=== PATIENT | male | born 1960 | race Caucasian/White ===

== ENCOUNTER 2017-06-24 16:09 | Inpatient (IN) | payer MEDICARE, MEDICAID ==
[~2017-06-24] VITALS: Ht 172.7 cm; Wt 73.3 kg
[~2017-06-24 16:09] MED LIST: APIX5TAB3 PO; NO HOME MEDS
[2017-06-24] MEDS ORDERED: folic acid 1mg tablet PO ONE (17:10)
[2017-06-24] MEDS ORDERED: thiamine 100mg tablet PO ONE (17:10)
[2017-06-24] MEDS ORDERED: chlordiazePOXIDE 25mg capsule PO ONE (17:10)
[2017-06-24] MEDS ORDERED: LORazepam 1 MG tablet PO ONE (17:10)
[2017-06-24] MEDS ORDERED: magnesium oxide 400mg tablet PO ONE (17:10)
[2017-06-24 17:29] LABS: BASOPHILS % (AUTO) 0.3 % (0-1); EOSINOPHILS # (AUTO) 0.1 X10'3 (0-0.9); HEMATOCRIT 41.9 % (42.0-52.0); HEMOGLOBIN 15.1 g/dl (14.0-17.9); LYMPHOCYTES # (AUTO) 0.6 X10'3 (1.1-4.8); LYMPHOCYTES % (AUTO) 9.3 % (21-51); MEAN CORPUSCULAR HEMOGLOBIN 35.3 PG (27.0-31.0); MEAN CORPUSCULAR HGB CONC 35.9 % (33.0-36.5); MEAN CORPUSCULAR VOLUME 98.2 FL (78-98); MEAN PLATELET VOLUME 7.1 FL (7.4-10.4); MONOCYTES # (AUTO) 0.5 X10'3 (0-0.9); MONOCYTES % (AUTO) 8.7 % (2-12); NEUTROPHILS # (AUTO) 4.9 X10'3 (1.8-7.7); NEUTROPHILS % (AUTO) 80.7 % (42-75); PLATELET COUNT 170 X10'3 (140-440); RED BLOOD COUNT 4.27 X10'6 (4.70-6.10); RED CELL DISTRIBUTION WIDTH 13.1 % (11.5-14.5)
[2017-06-24 17:36] LABS: PARTIAL THROMBOPLASTIN TIME 23 SECONDS (22-32); PROTHROMBIN TIME 10.1 SECONDS (9.0-12.0)
[2017-06-24 17:41] LABS: ALANINE AMINOTRANSFERASE 421 U/L (12-78); ALBUMIN 4.2 G/DL (3.4-5.0); ALBUMIN/GLOBULIN RATIO 1.1 (1.1-1.5); ALKALINE PHOSPHATASE 129 IU/L (46-116); ANION GAP 16 (8-16); ASPARTATE AMINO TRANSFERASE 458 U/L (10-37); BILIRUBIN,TOTAL 1.4 MG/DL (0.1-1.0); BLOOD UREA NITROGEN 13 MG/DL (7-18); CALCIUM 9.8 MG/DL (8.5-10.1); CHLORIDE 97 MMOL/L (99-107); GLUCOSE 81 MG/DL (70-104); MAGNESIUM 1.9 MG/DL (1.5-2.4); POTASSIUM 4.9 MMOL/L (3.5-5.1); SODIUM 137 MMOL/L (135-145); TOTAL CARBON DIOXIDE 23.9 MMOL/L (24-32); TOTAL PROTEIN 7.9 G/DL (6.4-8.2); eGFR 57 ML/MIN
[2017-06-24 17:42] LABS: ETHANOL < 0.010 GM/DL (0.0-0.010)
[2017-06-24 17:58] LABS: LIPASE 196 U/L (73-393)
[2017-06-24] MEDS ORDERED: Potassium Cl inj 20 MEQ, magnesium sulf injection 2 GM, folic acid inj. 1 MG, thiamine ... IV ONE ×6 (18:54)
[2017-06-24] MEDS ORDERED: LORazepam 2 mg/ml vial IV ONE (18:55)
[2017-06-24] MEDS ORDERED: ondansetron/PF 4mg/2ml inj IV PRN ×3 (19:15→19:20)
[2017-06-24] MEDS ORDERED: magnesium hydroxide 30ml (MOM) UD suspension PO PRN ×3 (19:15→19:20)
[2017-06-24] MEDS ORDERED: acetaminophen 325mg tablet PO PRN ×3 (19:15→19:20)
[2017-06-24] MEDS ORDERED: mag hydrox/Alum hydrox/simeth 30ml oral suspension PO PRN ×3 (19:15→19:20)
[2017-06-24] MEDS ORDERED: thiamine inj. 100 MG in normal saline 100ml IV soln 100 ML IV ONE (19:20)
[2017-06-24] MEDS ORDERED: folic acid inj. 2 MG, thiamine inj. 100 MG, MVI, adult No.4 with vit. K 10 ML in dextro... IV SCH ×4 (19:20)
[2017-06-24] MEDS ORDERED: apixaban 5mg tablet PO SCH (20:00)
[2017-06-24 21:50] LABS: CLARITY,URINE CLEAR (Clear); COLOR,URINE YELLOW (Yellow); GLUCOSE, URINE NEGATIVE (Neg); KETONES,URINE >=80 mg/dl (Neg); LEUKOCYTE ESTERASE ,URINE NEGATIVE (Neg); NITRITES, URINE NEGATIVE (Neg); OCCULT BLOOD,URINE SMALL (Neg); PH,URINE 6.5 (4.8-8.0); PROTEIN,URINE TRACE mg/dl (Neg)
[2017-06-24 21:52] LABS: UA COLLECTION TYPE CLN CATCH MIDSTREAM
[2017-06-24 22:01] LABS: BACTERIA,URINE FEW /HPF (Neg); MUCUS STRANDS MODERATE /LPF (Neg); RBC,URINE 0-2 /HPF (0-2); SQUAMOUS EPITHELIAL CELL,UR FEW /LPF (FEW); WBC,URINE 0-4 /HPF (0-4)
[2017-06-24 22:02] LABS: URINE AMPHETAMINE SCREEN NEGATIVE (Neg); URINE BARBITUATE SCREEN NEGATIVE (Neg); URINE BENZODIAZEPINES SCREEN NEGATIVE (Neg); URINE CANNABINOID SCREEN POSITIVE (Neg); URINE COCAINE SCREEN NEGATIVE (Neg); URINE METHADONE SCREEN NEGATIVE (Neg); URINE OPIATE SCREEN NEGATIVE (Neg); URINE PHENCYCLIDINE SCREEN NEGATIVE (Neg)
[2017-06-25] MEDS ORDERED: thiamine 100mg/ml 2ml inj. IV ONE (06:40)
[2017-06-25] MEDS ORDERED: dextrose 50%-water 50ml dispensing syringe IV PRN (06:40)
[2017-06-25] MEDS ORDERED: haloperidol lactate 5mg/ml inj IM PRN (06:40)
[2017-06-25] MEDS ORDERED: LORazepam 2 mg/ml vial IV PRN (06:40)
[2017-06-25] MEDS ORDERED: haloperidol 5mg tablet PO PRN (06:40)
[2017-06-25] MEDS ORDERED: LORazepam 1 MG tablet PO PRN (06:40)
[2017-06-25] MEDS ORDERED: heparin 10,000 units/1 ML INJ IV PRN (08:35)
[2017-06-25] MEDS ORDERED: heparin 10,000 units/1 ML INJ IV ONE (08:35)
[2017-06-25 09:01] LABS: BASOPHILS % (AUTO) 0.4 % (0-1); EOSINOPHILS % (AUTO) 1.3 % (0-6); HEMATOCRIT 34.3 % (42.0-52.0); HEMOGLOBIN 11.9 g/dl (14.0-17.9); LYMPHOCYTES # (AUTO) 1.1 X10'3 (1.1-4.8); LYMPHOCYTES % (AUTO) 32.4 % (21-51); MEAN CORPUSCULAR HEMOGLOBIN 34.6 PG (27.0-31.0); MEAN CORPUSCULAR HGB CONC 34.8 % (33.0-36.5); MEAN CORPUSCULAR VOLUME 99.4 FL (78-98); MEAN PLATELET VOLUME 7.5 FL (7.4-10.4); MONOCYTES # (AUTO) 0.4 X10'3 (0-0.9); MONOCYTES % (AUTO) 12.3 % (2-12); NEUTROPHILS # (AUTO) 1.8 X10'3 (1.8-7.7); NEUTROPHILS % (AUTO) 53.6 % (42-75); PLATELET COUNT 115 X10'3 (140-440); RED BLOOD COUNT 3.45 X10'6 (4.70-6.10); WHITE BLOOD COUNT 3.4 X10'3 (4.5-11.0)
[2017-06-25 09:12] LABS: INR 1.1 INR; PROTHROMBIN TIME 11.1 SECONDS (9.0-12.0)
[2017-06-25 09:23] LABS: ALANINE AMINOTRANSFERASE 243 U/L (12-78); ALBUMIN 2.8 G/DL (3.4-5.0); ALKALINE PHOSPHATASE 90 IU/L (46-116); AMYLASE 30 U/L (25-115); ANION GAP 6 (8-16); ASPARTATE AMINO TRANSFERASE 204 U/L (10-37); BILIRUBIN,TOTAL 1.1 MG/DL (0.1-1.0); BLOOD UREA NITROGEN 14 MG/DL (7-18); BUN/CREATININE RATIO 15.6 (5.4-32.0); CALCIUM 8.5 MG/DL (8.5-10.1); CHLORIDE 103 MMOL/L (99-107); GLUCOSE 83 MG/DL (70-104); LIPASE 183 U/L (73-393); MAGNESIUM 2.4 MG/DL (1.5-2.4); PHOSPHORUS 3.3 MG/DL (2.3-4.5); POTASSIUM 4.6 MMOL/L (3.5-5.1); SODIUM 138 MMOL/L (135-145); TOTAL CARBON DIOXIDE 29.5 MMOL/L (24-32); TOTAL PROTEIN 5.7 G/DL (6.4-8.2); eGFR 87 ML/MIN
[2017-06-25] MEDS: pantoprazole 40mg Tablet.DR PO SCH (10:17)
[2017-06-25 15:45] VITALS: BP 95/59
[2017-06-25 18:00] VITALS: BP 82/52
[2017-06-25] MEDS: multivitamins, therapeutics tablet PO SCH (20:18)
[2017-06-25] MEDS: thiamine 100mg tablet PO SCH (20:18)
[2017-06-25] MEDS: folic acid 1mg tablet PO SCH (20:19)
[2017-06-25] MEDS ORDERED: folic acid inj. 2 MG, thiamine inj. 100 MG, MVI, adult No.4 with vit. K 10 ML in dextro... IV SCH ×4 (21:00)
[2017-06-25 22:00] VITALS: BP 108/60
[2017-06-26 02:18] LABS: PROTHROMBIN TIME 10.7 SECONDS (9.0-12.0)
[2017-06-26 06:30] VITALS: BP 103/68
[2017-06-26] MEDS: pantoprazole 40mg Tablet.DR PO SCH (06:45)
[2017-06-26 08:02] LABS: BASOPHILS % (AUTO) 0.3 % (0-1); EOSINOPHILS # (AUTO) 0.1 X10'3 (0-0.9); EOSINOPHILS % (AUTO) 1.7 % (0-6); HEMATOCRIT 36.5 % (42.0-52.0); HEMOGLOBIN 12.7 g/dl (14.0-17.9); LYMPHOCYTES # (AUTO) 1.4 X10'3 (1.1-4.8); LYMPHOCYTES % (AUTO) 39.9 % (21-51); MEAN CORPUSCULAR HEMOGLOBIN 34.4 PG (27.0-31.0); MEAN CORPUSCULAR HGB CONC 34.7 % (33.0-36.5); MEAN CORPUSCULAR VOLUME 99.1 FL (78-98); MEAN PLATELET VOLUME 7.7 FL (7.4-10.4); MONOCYTES # (AUTO) 0.3 X10'3 (0-0.9); MONOCYTES % (AUTO) 9.7 % (2-12); NEUTROPHILS # (AUTO) 1.7 X10'3 (1.8-7.7); NEUTROPHILS % (AUTO) 48.4 % (42-75); PLATELET COUNT 115 X10'3 (140-440); RED BLOOD COUNT 3.68 X10'6 (4.70-6.10); RED CELL DISTRIBUTION WIDTH 12.7 % (11.5-14.5); WHITE BLOOD COUNT 3.6 X10'3 (4.5-11.0)
[2017-06-26 10:01] VITALS: BP 88/47
[2017-06-26 10:23] LABS: ALANINE AMINOTRANSFERASE 207 U/L (12-78); ALKALINE PHOSPHATASE 98 IU/L (46-116); AMYLASE 39 U/L (25-115); ANION GAP 7 (8-16); ASPARTATE AMINO TRANSFERASE 141 U/L (10-37); BILIRUBIN,TOTAL 0.7 MG/DL (0.1-1.0); BLOOD UREA NITROGEN 15 MG/DL (7-18); BUN/CREATININE RATIO 16.7 (5.4-32.0); CHLORIDE 104 MMOL/L (99-107); GLUCOSE 101 MG/DL (70-104); LIPASE 311 U/L (73-393); PHOSPHORUS 4.9 MG/DL (2.3-4.5); POTASSIUM 4.1 MMOL/L (3.5-5.1); SODIUM 138 MMOL/L (135-145); TOTAL CARBON DIOXIDE 27.5 MMOL/L (24-32); eGFR 87 ML/MIN
[2017-06-26 10:30] LABS: CALCIUM 9.3 MG/DL (8.5-10.1)
[2017-06-26] MEDS: warfarin 5mg tablet PO SCH (16:02)
[2017-06-26 18:52] VITALS: BP 85/54
[2017-06-26] MEDS: multivitamins, therapeutics tablet PO SCH (21:05)
[2017-06-26] MEDS: folic acid 1mg tablet PO SCH (21:05)
[2017-06-26] MEDS: thiamine 100mg tablet PO SCH (21:05)
[2017-06-26 22:00] VITALS: BP 88/51
[2017-06-27 02:23] VITALS: BP 104/61
[2017-06-27 03:36] LABS: BASOPHILS % (AUTO) 0.2 % (0-1); EOSINOPHILS # (AUTO) 0.1 X10'3 (0-0.9); EOSINOPHILS % (AUTO) 1.5 % (0-6); HEMATOCRIT 34.6 % (42.0-52.0); HEMOGLOBIN 11.9 g/dl (14.0-17.9); LYMPHOCYTES # (AUTO) 1.6 X10'3 (1.1-4.8); MEAN CORPUSCULAR HEMOGLOBIN 34.4 PG (27.0-31.0); MEAN CORPUSCULAR HGB CONC 34.4 % (33.0-36.5); MEAN CORPUSCULAR VOLUME 99.9 FL (78-98); MEAN PLATELET VOLUME 8.1 FL (7.4-10.4); MONOCYTES # (AUTO) 0.5 X10'3 (0-0.9); MONOCYTES % (AUTO) 11.6 % (2-12); NEUTROPHILS # (AUTO) 2.1 X10'3 (1.8-7.7); NEUTROPHILS % (AUTO) 49.7 % (42-75); PLATELET COUNT 116 X10'3 (140-440); RED BLOOD COUNT 3.47 X10'6 (4.70-6.10); RED CELL DISTRIBUTION WIDTH 13.1 % (11.5-14.5); WHITE BLOOD COUNT 4.3 X10'3 (4.5-11.0)
[2017-06-27 03:55] LABS: PROTHROMBIN TIME 10.4 SECONDS (9.0-12.0)
[2017-06-27 04:01] LABS: ALANINE AMINOTRANSFERASE 164 U/L (12-78); ALBUMIN 2.9 G/DL (3.4-5.0); ALKALINE PHOSPHATASE 89 IU/L (46-116); AMYLASE 41 U/L (25-115); ANION GAP 6 (8-16); ASPARTATE AMINO TRANSFERASE 92 U/L (10-37); BILIRUBIN,TOTAL 0.5 MG/DL (0.1-1.0); BLOOD UREA NITROGEN 16 MG/DL (7-18); CALCIUM 9.1 MG/DL (8.5-10.1); CHLORIDE 104 MMOL/L (99-107); GLUCOSE 103 MG/DL (70-104); LIPASE 305 U/L (73-393); MAGNESIUM 1.8 MG/DL (1.5-2.4); PHOSPHORUS 4.5 MG/DL (2.3-4.5); POTASSIUM 4.3 MMOL/L (3.5-5.1); SODIUM 139 MMOL/L (135-145); TOTAL CARBON DIOXIDE 29.1 MMOL/L (24-32); TOTAL PROTEIN 5.9 G/DL (6.4-8.2); eGFR 77 ML/MIN
[2017-06-27 06:00] VITALS: BP 111/68
[2017-06-27] MEDS ORDERED: warfarin 5mg tablet PO SCH (08:00)
[2017-06-27 08:16] VITALS: BP 101/62
[2017-06-27] MEDS: warfarin 5mg tablet PO SCH (09:29)
[2017-06-27] MEDS: pantoprazole 40mg Tablet.DR PO SCH (09:29)
[2017-06-27 12:30] LABS: PROTHROMBIN TIME 10.4 SECONDS (9.0-12.0)
[2017-06-27 18:50] VITALS: BP 89/55
[2017-06-27] MEDS: multivitamins, therapeutics tablet PO SCH (20:18)
[2017-06-27] MEDS: thiamine 100mg tablet PO SCH (20:18)
[2017-06-27] MEDS: folic acid 1mg tablet PO SCH (20:18)
[2017-06-27 22:38] VITALS: BP 89/53
[2017-06-28 01:53] VITALS: BP 116/66
[2017-06-28 04:12] LABS: BASOPHILS % (AUTO) 0.5 % (0-1); EOSINOPHILS # (AUTO) 0.1 X10'3 (0-0.9); EOSINOPHILS % (AUTO) 1.7 % (0-6); HEMATOCRIT 35.2 % (42.0-52.0); HEMOGLOBIN 12.2 g/dl (14.0-17.9); LYMPHOCYTES # (AUTO) 1.1 X10'3 (1.1-4.8); LYMPHOCYTES % (AUTO) 27.8 % (21-51); MEAN CORPUSCULAR HEMOGLOBIN 34.5 PG (27.0-31.0); MEAN CORPUSCULAR HGB CONC 34.6 % (33.0-36.5); MEAN CORPUSCULAR VOLUME 99.5 FL (78-98); MEAN PLATELET VOLUME 7.9 FL (7.4-10.4); MONOCYTES # (AUTO) 0.4 X10'3 (0-0.9); MONOCYTES % (AUTO) 9.9 % (2-12); NEUTROPHILS # (AUTO) 2.4 X10'3 (1.8-7.7); NEUTROPHILS % (AUTO) 60.1 % (42-75); PLATELET COUNT 117 X10'3 (140-440); RED BLOOD COUNT 3.54 X10'6 (4.70-6.10); RED CELL DISTRIBUTION WIDTH 12.9 % (11.5-14.5)
[2017-06-28 04:29] LABS: INR 1.1 INR; PROTHROMBIN TIME 11.4 SECONDS (9.0-12.0)
[2017-06-28 04:33] LABS: ALANINE AMINOTRANSFERASE 141 U/L (12-78); ALBUMIN 2.8 G/DL (3.4-5.0); ALKALINE PHOSPHATASE 86 IU/L (46-116); AMYLASE 42 U/L (25-115); ANION GAP 8 (8-16); ASPARTATE AMINO TRANSFERASE 72 U/L (10-37); BILIRUBIN,TOTAL 0.4 MG/DL (0.1-1.0); BLOOD UREA NITROGEN 20 MG/DL (7-18); BUN/CREATININE RATIO 18.2 (5.4-32.0); CALCIUM 8.9 MG/DL (8.5-10.1); CHLORIDE 105 MMOL/L (99-107); GLUCOSE 108 MG/DL (70-104); LIPASE 327 U/L (73-393); MAGNESIUM 1.6 MG/DL (1.5-2.4); PHOSPHORUS 4.4 MG/DL (2.3-4.5); POTASSIUM 4.1 MMOL/L (3.5-5.1); SODIUM 141 MMOL/L (135-145); TOTAL CARBON DIOXIDE 28.2 MMOL/L (24-32); TOTAL PROTEIN 5.7 G/DL (6.4-8.2); eGFR 69 ML/MIN
[2017-06-28 05:00] VITALS: BP 101/64
[2017-06-28] MEDS: pantoprazole 40mg Tablet.DR PO SCH (07:58)
[2017-06-28 10:00] VITALS: BP 89/51
[2017-06-28 11:27] VITALS: BP 95/71
[2017-06-28 12:16] LABS: INR 1.1 INR; PROTHROMBIN TIME 11.4 SECONDS (9.0-12.0)
[2017-06-28] MEDS ORDERED: rivaroxaban 20mg tablet PO ONE (19:20)
[2017-06-28 19:34] VITALS: BP 88/54
[2017-06-28] MEDS: thiamine 100mg tablet PO SCH (20:38)
[2017-06-28] MEDS: folic acid 1mg tablet PO SCH (20:38)
[2017-06-28] MEDS: multivitamins, therapeutics tablet PO SCH (20:38)
[2017-06-28] MEDS ORDERED: warfarin 3mg tablet PO ONE (21:00)
[2017-06-28 22:18] VITALS: BP 93/57
[2017-06-29 06:00] VITALS: BP 93/57
[2017-06-29 06:19] LABS: BASOPHILS % (AUTO) 0.4 % (0-1); EOSINOPHILS % (AUTO) 1.4 % (0-6); HEMATOCRIT 35.6 % (42.0-52.0); HEMOGLOBIN 12.6 g/dl (14.0-17.9); LYMPHOCYTES # (AUTO) 0.9 X10'3 (1.1-4.8); LYMPHOCYTES % (AUTO) 28.9 % (21-51); MEAN CORPUSCULAR HEMOGLOBIN 34.8 PG (27.0-31.0); MEAN CORPUSCULAR HGB CONC 35.4 % (33.0-36.5); MEAN CORPUSCULAR VOLUME 98.3 FL (78-98); MEAN PLATELET VOLUME 8.1 FL (7.4-10.4); MONOCYTES # (AUTO) 0.6 X10'3 (0-0.9); MONOCYTES % (AUTO) 19.5 % (2-12); NEUTROPHILS # (AUTO) 1.6 X10'3 (1.8-7.7); NEUTROPHILS % (AUTO) 49.8 % (42-75); PLATELET COUNT 121 X10'3 (140-440); RED BLOOD COUNT 3.62 X10'6 (4.70-6.10); WHITE BLOOD COUNT 3.2 X10'3 (4.5-11.0)
[2017-06-29 07:10] LABS: ALANINE AMINOTRANSFERASE 124 U/L (12-78); ALKALINE PHOSPHATASE 91 IU/L (46-116); AMYLASE 35 U/L (25-115); ANION GAP 9 (8-16); ASPARTATE AMINO TRANSFERASE 64 U/L (10-37); BILIRUBIN,TOTAL 0.4 MG/DL (0.1-1.0); BLOOD UREA NITROGEN 22 MG/DL (7-18); CHLORIDE 106 MMOL/L (99-107); GLUCOSE 96 MG/DL (70-104); LIPASE 213 U/L (73-393); MAGNESIUM 1.7 MG/DL (1.5-2.4); PHOSPHORUS 3.8 MG/DL (2.3-4.5); POTASSIUM 4.2 MMOL/L (3.5-5.1); SODIUM 141 MMOL/L (135-145); TOTAL CARBON DIOXIDE 26.4 MMOL/L (24-32); TOTAL PROTEIN 6.1 G/DL (6.4-8.2); eGFR 69 ML/MIN
[2017-06-29] MEDS ORDERED: rivaroxaban 15mg tablet PO SCH (08:00)
[2017-06-29] MEDS ORDERED: rivaroxaban 20mg tablet PO SCH (08:00)
[2017-06-29] MEDS: pantoprazole 40mg Tablet.DR PO SCH (09:01)
[2017-06-29 10:30] VITALS: BP 90/61
[2017-06-29] MEDS ORDERED: RIVA15TA PO (17:02)
== END 2017-06-29 18:29 | DRG 896 ==
LOC: ER 16:10 → ED HOLD 19:14 → EDBEDREQ 06-25 13:49 → ORTHO 4S 06-25 15:50
PROVIDERS: ADMIT Family Medicine; ATTEND Family Medicine
DX: F10.230 Alcohol dependence with withdrawal, uncomplicated (principal); G93.41 Metabolic encephalopathy; N17.0 Acute kidney failure with tubular necrosis; F33.2 Major depressive disorder, recurrent severe without psychotic features; I82.513 Chronic embolism and thrombosis of femoral vein, bilateral; E86.0 Dehydration; Y90.0 Blood alcohol level of less than 20 mg/100 ml; G47.00 Insomnia, unspecified; J44.9 Chronic obstructive pulmonary disease, unspecified; F17.210 Nicotine dependence, cigarettes, uncomplicated; Z59.0 Homelessness; Z79.01 Long term (current) use of anticoagulants; Z79.899 Other long term (current) drug therapy; Z71.6 Tobacco abuse counseling
CPT/HCPCS: 36415; 80053; 80305; 80320; 81001; 82150; 82948; 83690; 83735; 84100; 85025; 85610; 85730; 87070; 93005; 93970; 97116; 99285; J1644; J2060; J3411; J3475; J3480; J3490; J7030; J7060

== ENCOUNTER 2017-06-29 16:45 | Inpatient (IN) | payer MEDICARE, MEDICAID ==
[~2017-06-29] VITALS: Ht 172.7 cm; Wt 80.9 kg
[2017-06-29] MEDS ORDERED: RIVA15TA PO (17:02)
[2017-06-29 17:43] VITALS: BP 120/80
[2017-06-29] MEDS ORDERED: mag hydrox/Alum hydrox/simeth 30ml oral suspension PO ONE (18:00)
[2017-06-29] MEDS ORDERED: magnesium hydroxide 30ml (MOM) UD suspension PO ONE (18:00)
[2017-06-29] MEDS: LORazepam 1 MG tablet PO PRN ×3 (18:15→22:38)
[2017-06-29] MEDS ORDERED: mag hydrox/Alum hydrox/simeth 30ml oral suspension PO PRN (18:15)
[2017-06-29] MEDS ORDERED: magnesium hydroxide 30ml (MOM) UD suspension PO PRN (18:15)
[2017-06-29 19:40] VITALS: BP 101/66
[2017-06-29] MEDS: thiamine 100mg tablet PO SCH (20:23)
[2017-06-29] MEDS ORDERED: traZODone 50mg tablet PO PRN (20:45)
[2017-06-30 08:00] VITALS: BP 90/51
[2017-06-30] MEDS: pantoprazole 40mg Tablet.DR PO SCH (08:50)
[2017-06-30] MEDS: folic acid/vitamin B complex w/vitamin C 0.8mg tablet PO SCH (08:51)
[2017-06-30] MEDS: Protein Smoothie (high protein) 240ml (8oz) cup PO SCH ×3 (08:51→18:00)
[2017-06-30] MEDS: thiamine 100mg tablet PO SCH ×2 (08:51→20:00)
[2017-06-30] MEDS: multivitamins, therapeutics tablet PO SCH (08:51)
[2017-06-30] MEDS: rivaroxaban 15mg tablet PO SCH (10:39)
[2017-06-30] MEDS: LORazepam 1 MG tablet PO PRN (12:19)
[2017-06-30] MEDS ORDERED: LORazepam 1 MG tablet PO SCH (12:40)
[2017-06-30] MEDS: traZODone 50mg tablet PO SCH ×2 (12:40→21:00)
[2017-06-30 14:00] VITALS: BP 97/69
[2017-06-30] MEDS: LORazepam 1 MG tablet PO SCH ×2 (14:00→20:00)
[2017-06-30] MEDS: acetaminophen 325mg tablet PO PRN ×2 (16:35→23:10)
[2017-06-30 19:09] VITALS: BP 96/59
[2017-06-30] MEDS ORDERED: mirtazapine 15mg tablet PO SCH (21:00)
[2017-07-01] MEDS: LORazepam 1 MG tablet PO SCH ×4 (02:00→20:24)
[2017-07-01 02:29] VITALS: BP 91/57
[2017-07-01] MEDS: Protein Smoothie (high protein) 240ml (8oz) cup PO SCH ×3 (08:00→18:45)
[2017-07-01] MEDS: folic acid/vitamin B complex w/vitamin C 0.8mg tablet PO SCH (09:14)
[2017-07-01] MEDS: pantoprazole 40mg Tablet.DR PO SCH (09:14)
[2017-07-01] MEDS: rivaroxaban 15mg tablet PO SCH (09:14)
[2017-07-01] MEDS: thiamine 100mg tablet PO SCH ×2 (09:15→20:24)
[2017-07-01] MEDS: multivitamins, therapeutics tablet PO SCH (09:15)
[2017-07-01 15:00] VITALS: BP 101/74
[2017-07-01 19:34] VITALS: BP 107/76
[2017-07-01] MEDS: mirtazapine 15mg tablet PO SCH (20:23)
[2017-07-01] MEDS: traZODone 150mg tablet PO SCH (20:24)
[2017-07-02] MEDS: LORazepam 1 MG tablet PO SCH ×3 (02:04→15:11)
[2017-07-02 02:24] VITALS: BP 96/50
[2017-07-02 07:00] VITALS: BP 76/55
[2017-07-02] MEDS: multivitamins, therapeutics tablet PO SCH (08:22)
[2017-07-02] MEDS: pantoprazole 40mg Tablet.DR PO SCH (08:22)
[2017-07-02] MEDS: folic acid/vitamin B complex w/vitamin C 0.8mg tablet PO SCH (08:22)
[2017-07-02] MEDS: rivaroxaban 15mg tablet PO SCH (08:23)
[2017-07-02] MEDS: thiamine 100mg tablet PO SCH ×2 (08:23→20:25)
[2017-07-02] MEDS: Protein Smoothie (high protein) 240ml (8oz) cup PO SCH ×3 (08:30→18:45)
[2017-07-02 10:50] VITALS: BP 106/70
[2017-07-02 15:57] VITALS: BP 97/72
[2017-07-02 19:28] VITALS: BP 109/73
[2017-07-02] MEDS: mirtazapine 15mg tablet PO SCH (20:24)
[2017-07-02] MEDS: traZODone 150mg tablet PO SCH (20:24)
[2017-07-02] MEDS ORDERED: LORazepam 1 MG tablet PO ONE (21:00)
[2017-07-03 07:00] VITALS: BP 81/43
[2017-07-03] MEDS ORDERED: LORazepam 1 MG tablet PO SCH (08:00)
[2017-07-03] MEDS: pantoprazole 40mg Tablet.DR PO SCH (08:48)
[2017-07-03] MEDS: folic acid/vitamin B complex w/vitamin C 0.8mg tablet PO SCH (08:48)
[2017-07-03] MEDS: thiamine 100mg tablet PO SCH ×2 (08:49→20:22)
[2017-07-03] MEDS: multivitamins, therapeutics tablet PO SCH (08:49)
[2017-07-03] MEDS: rivaroxaban 15mg tablet PO SCH ×2 (08:49→20:22)
[2017-07-03 08:50] VITALS: BP 92/62
[2017-07-03] MEDS: Protein Smoothie (high protein) 240ml (8oz) cup PO SCH ×3 (08:55→18:55)
[2017-07-03] MEDS: LORazepam 1 MG tablet PO SCH ×2 (13:27→20:22)
[2017-07-03 15:00] VITALS: BP 106/58
[2017-07-03 19:50] VITALS: BP 109/76
[2017-07-03] MEDS: traZODone 50mg tablet PO SCH (20:22)
[2017-07-03] MEDS: mirtazapine 15mg tablet PO SCH (20:22)
[2017-07-04] MEDS: folic acid/vitamin B complex w/vitamin C 0.8mg tablet PO SCH (07:56)
[2017-07-04] MEDS: pantoprazole 40mg Tablet.DR PO SCH (07:56)
[2017-07-04] MEDS: rivaroxaban 15mg tablet PO SCH ×2 (07:56→20:14)
[2017-07-04] MEDS: thiamine 100mg tablet PO SCH ×2 (07:56→20:14)
[2017-07-04] MEDS: multivitamins, therapeutics tablet PO SCH (07:56)
[2017-07-04] MEDS: LORazepam 1 MG tablet PO SCH ×4 (07:56→20:14)
[2017-07-04] MEDS: Protein Smoothie (high protein) 240ml (8oz) cup PO SCH ×3 (07:58→18:07)
[2017-07-04 08:00] VITALS: BP 85/56
[2017-07-04] MEDS ORDERED: duloxetine 30mg CAPSULE.DR PO SCH (08:00)
[2017-07-04 15:00] VITALS: BP 87/56
[2017-07-04 19:00] VITALS: BP 114/77
[2017-07-04] MEDS: traZODone 50mg tablet PO SCH (20:13)
[2017-07-04] MEDS: mirtazapine 15mg tablet PO SCH (20:14)
[2017-07-05 07:14] VITALS: BP 92/56
[2017-07-05] MEDS: folic acid/vitamin B complex w/vitamin C 0.8mg tablet PO SCH (07:54)
[2017-07-05] MEDS: duloxetine 30mg CAPSULE.DR PO SCH (07:55)
[2017-07-05] MEDS: thiamine 100mg tablet PO SCH ×2 (07:55→20:50)
[2017-07-05] MEDS: LORazepam 1 MG tablet PO SCH ×3 (07:55→20:50)
[2017-07-05] MEDS: multivitamins, therapeutics tablet PO SCH (07:55)
[2017-07-05] MEDS: pantoprazole 40mg Tablet.DR PO SCH (07:56)
[2017-07-05] MEDS: rivaroxaban 15mg tablet PO SCH ×2 (07:56→20:50)
[2017-07-05] MEDS: Protein Smoothie (high protein) 240ml (8oz) cup PO SCH ×3 (08:38→17:50)
[2017-07-05 19:00] VITALS: BP 87/46
[2017-07-05] MEDS: mirtazapine 15mg tablet PO SCH (20:50)
[2017-07-05] MEDS ORDERED: QUEtiapine 25mg tablet PO SCH (21:00)
[2017-07-05] MEDS ORDERED: traZODone 50mg tablet PO SCH (21:00)
[2017-07-06 08:00] VITALS: BP 93/64
[2017-07-06] MEDS: Protein Smoothie (high protein) 240ml (8oz) cup PO SCH ×3 (08:00→19:42)
[2017-07-06] MEDS: pantoprazole 40mg Tablet.DR PO SCH (08:35)
[2017-07-06] MEDS: LORazepam 1 MG tablet PO SCH ×3 (08:35→20:31)
[2017-07-06] MEDS: thiamine 100mg tablet PO SCH ×2 (08:36→20:30)
[2017-07-06] MEDS: folic acid/vitamin B complex w/vitamin C 0.8mg tablet PO SCH (08:36)
[2017-07-06] MEDS: rivaroxaban 15mg tablet PO SCH ×2 (08:36→20:31)
[2017-07-06] MEDS: duloxetine 30mg CAPSULE.DR PO SCH (08:36)
[2017-07-06] MEDS: multivitamins, therapeutics tablet PO SCH (08:36)
[2017-07-06 19:11] VITALS: BP 82/45
[2017-07-06] MEDS: mirtazapine 15mg tablet PO SCH (20:31)
[2017-07-06] MEDS ORDERED: QUEtiapine 25mg tablet PO SCH (21:00)
[2017-07-07] MEDS: pantoprazole 40mg Tablet.DR PO SCH (06:59)
[2017-07-07 07:00] VITALS: BP 95/60
[2017-07-07] MEDS: folic acid/vitamin B complex w/vitamin C 0.8mg tablet PO SCH (08:24)
[2017-07-07] MEDS: duloxetine 30mg CAPSULE.DR PO SCH (08:24)
[2017-07-07] MEDS: multivitamins, therapeutics tablet PO SCH (08:24)
[2017-07-07] MEDS: LORazepam 1 MG tablet PO SCH ×3 (08:25→20:15)
[2017-07-07] MEDS: thiamine 100mg tablet PO SCH ×2 (08:26→20:14)
[2017-07-07] MEDS: rivaroxaban 15mg tablet PO SCH ×2 (08:26→20:14)
[2017-07-07] MEDS: Protein Smoothie (high protein) 240ml (8oz) cup PO SCH ×3 (08:36→18:40)
[2017-07-07 19:41] VITALS: BP 102/66
[2017-07-07] MEDS: quetiapine 100mg tablet PO SCH (20:15)
[2017-07-07] MEDS: mirtazapine 15mg tablet PO SCH (20:15)
[2017-07-08 07:00] VITALS: BP 104/68
[2017-07-08] MEDS: Protein Smoothie (high protein) 240ml (8oz) cup PO SCH ×4 (08:00→19:14)
[2017-07-08] MEDS: pantoprazole 40mg Tablet.DR PO SCH (08:25)
[2017-07-08] MEDS: duloxetine 30mg CAPSULE.DR PO SCH (08:25)
[2017-07-08] MEDS: LORazepam 1 MG tablet PO SCH ×3 (08:25→20:19)
[2017-07-08] MEDS: thiamine 100mg tablet PO SCH ×2 (08:25→20:18)
[2017-07-08] MEDS: multivitamins, therapeutics tablet PO SCH (08:25)
[2017-07-08] MEDS: rivaroxaban 15mg tablet PO SCH ×2 (08:25→20:19)
[2017-07-08] MEDS: folic acid/vitamin B complex w/vitamin C 0.8mg tablet PO SCH (08:25)
[2017-07-08 20:09] VITALS: BP 105/72
[2017-07-08] MEDS: mirtazapine 15mg tablet PO SCH (20:18)
[2017-07-08] MEDS: quetiapine 100mg tablet PO SCH (20:22)
[2017-07-09 07:38] VITALS: BP 102/57
[2017-07-09] MEDS: rivaroxaban 15mg tablet PO SCH ×2 (08:21→19:21)
[2017-07-09] MEDS: LORazepam 1 MG tablet PO SCH ×3 (08:21→19:21)
[2017-07-09] MEDS: pantoprazole 40mg Tablet.DR PO SCH (08:21)
[2017-07-09] MEDS: folic acid/vitamin B complex w/vitamin C 0.8mg tablet PO SCH (08:21)
[2017-07-09] MEDS: multivitamins, therapeutics tablet PO SCH (08:22)
[2017-07-09] MEDS: duloxetine 30mg CAPSULE.DR PO SCH ×2 (08:22→12:44)
[2017-07-09] MEDS: thiamine 100mg tablet PO SCH ×2 (08:22→19:21)
[2017-07-09] MEDS: Protein Smoothie (high protein) 240ml (8oz) cup PO SCH ×3 (08:24→18:27)
[2017-07-09 18:55] VITALS: BP 145/86
[2017-07-09] MEDS: quetiapine 100mg tablet PO SCH (20:26)
[2017-07-09] MEDS: mirtazapine 15mg tablet PO SCH (20:26)
[2017-07-09] MEDS: LORazepam 1 MG tablet PO PRN (21:20)
[2017-07-10 07:07] VITALS: BP 90/53
[2017-07-10] MEDS: multivitamins, therapeutics tablet PO SCH (08:31)
[2017-07-10] MEDS: rivaroxaban 15mg tablet PO SCH ×2 (08:31→20:30)
[2017-07-10] MEDS: pantoprazole 40mg Tablet.DR PO SCH (08:31)
[2017-07-10] MEDS: LORazepam 1 MG tablet PO SCH (08:31)
[2017-07-10] MEDS: thiamine 100mg tablet PO SCH ×2 (08:31→20:30)
[2017-07-10] MEDS: duloxetine 30mg CAPSULE.DR PO SCH ×2 (08:32→13:40)
[2017-07-10] MEDS: folic acid/vitamin B complex w/vitamin C 0.8mg tablet PO SCH (08:32)
[2017-07-10] MEDS: Protein Smoothie (high protein) 240ml (8oz) cup PO SCH ×3 (08:33→17:54)
[2017-07-10 19:04] VITALS: BP 109/77
[2017-07-10] MEDS: LORazepam 0.5 MG tablet PO SCH (20:30)
[2017-07-10] MEDS: quetiapine 100mg tablet PO SCH (20:30)
[2017-07-10] MEDS: mirtazapine 15mg tablet PO SCH (20:30)
[2017-07-11 07:00] VITALS: BP 96/56
[2017-07-11] MEDS: LORazepam 0.5 MG tablet PO SCH ×3 (08:04→20:28)
[2017-07-11] MEDS: folic acid/vitamin B complex w/vitamin C 0.8mg tablet PO SCH (08:04)
[2017-07-11] MEDS: pantoprazole 40mg Tablet.DR PO SCH (08:05)
[2017-07-11] MEDS: rivaroxaban 15mg tablet PO SCH ×2 (08:05→20:27)
[2017-07-11] MEDS: multivitamins, therapeutics tablet PO SCH (08:05)
[2017-07-11] MEDS: duloxetine 30mg CAPSULE.DR PO SCH ×2 (08:05→12:58)
[2017-07-11] MEDS: thiamine 100mg tablet PO SCH ×2 (08:05→20:27)
[2017-07-11 08:07] VITALS: BP 96/56
[2017-07-11] MEDS: Protein Smoothie (high protein) 240ml (8oz) cup PO SCH ×3 (08:10→18:40)
[2017-07-11 19:00] VITALS: BP 118/81
[2017-07-11] MEDS: mirtazapine 15mg tablet PO SCH (20:28)
[2017-07-11] MEDS: quetiapine 100mg tablet PO SCH (20:28)
[2017-07-12 07:39] VITALS: BP 113/62
[2017-07-12] MEDS: thiamine 100mg tablet PO SCH ×2 (08:08→20:32)
[2017-07-12] MEDS: LORazepam 0.5 MG tablet PO SCH ×3 (08:08→20:32)
[2017-07-12] MEDS: multivitamins, therapeutics tablet PO SCH (08:08)
[2017-07-12] MEDS: folic acid/vitamin B complex w/vitamin C 0.8mg tablet PO SCH (08:08)
[2017-07-12] MEDS: pantoprazole 40mg Tablet.DR PO SCH (08:08)
[2017-07-12] MEDS: rivaroxaban 15mg tablet PO SCH ×2 (08:08→20:34)
[2017-07-12] MEDS: duloxetine 30mg CAPSULE.DR PO SCH ×2 (08:09→13:33)
[2017-07-12] MEDS: Protein Smoothie (high protein) 240ml (8oz) cup PO SCH ×3 (08:17→18:01)
[2017-07-12 19:00] VITALS: BP 127/78
[2017-07-12] MEDS: mirtazapine 15mg tablet PO SCH (20:31)
[2017-07-12] MEDS: quetiapine 100mg tablet PO SCH (20:32)
[2017-07-13 07:29] VITALS: BP 89/45
[2017-07-13] MEDS: folic acid/vitamin B complex w/vitamin C 0.8mg tablet PO SCH (08:14)
[2017-07-13] MEDS: duloxetine 30mg CAPSULE.DR PO SCH ×2 (08:14→12:53)
[2017-07-13] MEDS: thiamine 100mg tablet PO SCH ×2 (08:14→19:59)
[2017-07-13] MEDS: multivitamins, therapeutics tablet PO SCH (08:15)
[2017-07-13] MEDS: rivaroxaban 15mg tablet PO SCH ×2 (08:16→19:59)
[2017-07-13] MEDS: LORazepam 0.5 MG tablet PO SCH ×2 (08:16→20:00)
[2017-07-13] MEDS: pantoprazole 40mg Tablet.DR PO SCH (08:16)
[2017-07-13] MEDS: Protein Smoothie (high protein) 240ml (8oz) cup PO SCH ×3 (08:17→18:00)
[2017-07-13] MEDS: quetiapine 100mg tablet PO SCH (19:59)
[2017-07-13] MEDS: mirtazapine 15mg tablet PO SCH (20:00)
[2017-07-13 20:44] VITALS: BP 109/70
[2017-07-14 07:00] VITALS: BP 118/82
[2017-07-14] MEDS: pantoprazole 40mg Tablet.DR PO SCH (07:42)
[2017-07-14] MEDS: folic acid/vitamin B complex w/vitamin C 0.8mg tablet PO SCH (08:19)
[2017-07-14] MEDS: LORazepam 0.5 MG tablet PO SCH ×2 (08:19→20:44)
[2017-07-14] MEDS: rivaroxaban 15mg tablet PO SCH ×2 (08:19→20:44)
[2017-07-14] MEDS: multivitamins, therapeutics tablet PO SCH (08:19)
[2017-07-14] MEDS: thiamine 100mg tablet PO SCH ×2 (08:19→20:44)
[2017-07-14] MEDS: duloxetine 30mg CAPSULE.DR PO SCH ×2 (08:19→12:45)
[2017-07-14] MEDS: Protein Smoothie (high protein) 240ml (8oz) cup PO SCH ×3 (08:19→18:00)
[2017-07-14 20:00] VITALS: BP 114/73
[2017-07-14] MEDS: mirtazapine 15mg tablet PO SCH (20:44)
[2017-07-14] MEDS: quetiapine 100mg tablet PO SCH (20:45)
[2017-07-14] MEDS: HYDROcodone/acetaminophen 5mg/325mg tablet PO PRN (20:46)
[2017-07-15 07:00] VITALS: BP 119/78
[2017-07-15] MEDS: pantoprazole 40mg Tablet.DR PO SCH (08:04)
[2017-07-15] MEDS: rivaroxaban 15mg tablet PO SCH ×2 (08:04→20:19)
[2017-07-15] MEDS: multivitamins, therapeutics tablet PO SCH (08:04)
[2017-07-15] MEDS: duloxetine 30mg CAPSULE.DR PO SCH ×2 (08:04→13:10)
[2017-07-15] MEDS: folic acid/vitamin B complex w/vitamin C 0.8mg tablet PO SCH (08:04)
[2017-07-15] MEDS: thiamine 100mg tablet PO SCH ×2 (08:04→20:19)
[2017-07-15] MEDS: LORazepam 0.5 MG tablet PO SCH ×2 (08:04→20:19)
[2017-07-15] MEDS: Protein Smoothie (high protein) 240ml (8oz) cup PO SCH ×3 (08:06→17:56)
[2017-07-15 19:12] VITALS: BP 108/64
[2017-07-15] MEDS: quetiapine 100mg tablet PO SCH (20:17)
[2017-07-15] MEDS: mirtazapine 15mg tablet PO SCH (20:18)
[2017-07-16 07:00] VITALS: BP 111/66
[2017-07-16] MEDS: pantoprazole 40mg Tablet.DR PO SCH (07:36)
[2017-07-16] MEDS: thiamine 100mg tablet PO SCH ×2 (07:36→19:21)
[2017-07-16] MEDS: multivitamins, therapeutics tablet PO SCH (07:36)
[2017-07-16] MEDS: folic acid/vitamin B complex w/vitamin C 0.8mg tablet PO SCH (07:36)
[2017-07-16] MEDS: duloxetine 30mg CAPSULE.DR PO SCH ×2 (07:36→13:55)
[2017-07-16] MEDS: LORazepam 0.5 MG tablet PO SCH ×2 (07:36→19:21)
[2017-07-16] MEDS: rivaroxaban 15mg tablet PO SCH ×2 (07:40→19:21)
[2017-07-16] MEDS: Protein Smoothie (high protein) 240ml (8oz) cup PO SCH ×3 (08:00→18:00)
[2017-07-16 19:00] VITALS: BP 120/84
[2017-07-16] MEDS: mirtazapine 15mg tablet PO SCH (21:05)
[2017-07-16] MEDS: quetiapine 100mg tablet PO SCH (21:05)
[2017-07-17 07:00] VITALS: BP 108/62
[2017-07-17] MEDS: pantoprazole 40mg Tablet.DR PO SCH (08:06)
[2017-07-17] MEDS: LORazepam 0.5 MG tablet PO SCH ×2 (08:07→21:06)
[2017-07-17] MEDS: multivitamins, therapeutics tablet PO SCH (08:07)
[2017-07-17] MEDS: rivaroxaban 15mg tablet PO SCH ×2 (08:07→21:07)
[2017-07-17] MEDS: duloxetine 30mg CAPSULE.DR PO SCH ×2 (08:07→12:48)
[2017-07-17] MEDS: folic acid/vitamin B complex w/vitamin C 0.8mg tablet PO SCH (08:07)
[2017-07-17] MEDS: thiamine 100mg tablet PO SCH ×2 (08:07→20:00)
[2017-07-17] MEDS: Protein Smoothie (high protein) 240ml (8oz) cup PO SCH ×3 (08:10→18:00)
[2017-07-17 08:27] VITALS: BP 108/62
[2017-07-17 19:56] VITALS: BP 118/73
[2017-07-17] MEDS: quetiapine 100mg tablet PO SCH (21:07)
[2017-07-17] MEDS: mirtazapine 15mg tablet PO SCH (21:07)
[2017-07-18 07:58] VITALS: BP 108/65
[2017-07-18] MEDS: Protein Smoothie (high protein) 240ml (8oz) cup PO SCH ×3 (08:00→18:00)
[2017-07-18] MEDS: multivitamins, therapeutics tablet PO SCH (08:25)
[2017-07-18] MEDS: rivaroxaban 15mg tablet PO SCH ×2 (08:26→19:42)
[2017-07-18] MEDS: thiamine 100mg tablet PO SCH ×2 (08:27→19:42)
[2017-07-18] MEDS: folic acid/vitamin B complex w/vitamin C 0.8mg tablet PO SCH (08:27)
[2017-07-18] MEDS: pantoprazole 40mg Tablet.DR PO SCH (08:27)
[2017-07-18] MEDS: duloxetine 30mg CAPSULE.DR PO SCH ×2 (08:27→12:46)
[2017-07-18] MEDS: LORazepam 0.5 MG tablet PO SCH ×2 (08:28→19:42)
[2017-07-18 20:00] VITALS: BP 116/76
[2017-07-18] MEDS: quetiapine 100mg tablet PO SCH (20:10)
[2017-07-18] MEDS: mirtazapine 15mg tablet PO SCH (20:10)
[2017-07-19 07:30] VITALS: BP 95/58
[2017-07-19] MEDS: pantoprazole 40mg Tablet.DR PO SCH (07:39)
[2017-07-19] MEDS: LORazepam 0.5 MG tablet PO SCH (08:20)
[2017-07-19] MEDS: thiamine 100mg tablet PO SCH ×2 (08:20→19:12)
[2017-07-19] MEDS: rivaroxaban 15mg tablet PO SCH ×2 (08:20→19:06)
[2017-07-19] MEDS: folic acid/vitamin B complex w/vitamin C 0.8mg tablet PO SCH (08:20)
[2017-07-19] MEDS: multivitamins, therapeutics tablet PO SCH (08:20)
[2017-07-19] MEDS: duloxetine 30mg CAPSULE.DR PO SCH ×2 (08:21→12:03)
[2017-07-19] MEDS: Protein Smoothie (high protein) 240ml (8oz) cup PO SCH ×3 (08:45→18:00)
[2017-07-19] MEDS: LORazepam 1 MG tablet PO PRN (19:06)
[2017-07-19] MEDS: mirtazapine 15mg tablet PO SCH (19:06)
[2017-07-19] MEDS: quetiapine 100mg tablet PO SCH (19:06)
[2017-07-19 19:33] VITALS: BP 127/83
[2017-07-20] MEDS: pantoprazole 40mg Tablet.DR PO SCH (07:48)
[2017-07-20 08:00] VITALS: BP 85/47
[2017-07-20] MEDS: LORazepam 0.5 MG tablet PO SCH (08:17)
[2017-07-20] MEDS: buPROPion 75mg tablet PO SCH (08:17)
[2017-07-20] MEDS: folic acid/vitamin B complex w/vitamin C 0.8mg tablet PO SCH (08:18)
[2017-07-20] MEDS: thiamine 100mg tablet PO SCH ×2 (08:18→20:36)
[2017-07-20] MEDS: multivitamins, therapeutics tablet PO SCH (08:18)
[2017-07-20] MEDS: rivaroxaban 15mg tablet PO SCH ×2 (08:18→22:37)
[2017-07-20] MEDS: duloxetine 30mg CAPSULE.DR PO SCH ×2 (08:18→13:27)
[2017-07-20] MEDS: Protein Smoothie (high protein) 240ml (8oz) cup PO SCH ×3 (08:18→18:00)
[2017-07-20 19:55] VITALS: BP 115/73
[2017-07-20] MEDS: LORazepam 1 MG tablet PO PRN (20:36)
[2017-07-20] MEDS: quetiapine 100mg tablet PO SCH (20:36)
[2017-07-20] MEDS: mirtazapine 15mg tablet PO SCH (20:36)
[2017-07-21 07:00] VITALS: BP 113/76
[2017-07-21] MEDS: pantoprazole 40mg Tablet.DR PO SCH (07:56)
[2017-07-21] MEDS: LORazepam 0.5 MG tablet PO SCH (07:57)
[2017-07-21] MEDS: thiamine 100mg tablet PO SCH ×2 (07:57→21:06)
[2017-07-21] MEDS: rivaroxaban 15mg tablet PO SCH ×2 (07:57→21:06)
[2017-07-21] MEDS: buPROPion 75mg tablet PO SCH (07:57)
[2017-07-21] MEDS: folic acid/vitamin B complex w/vitamin C 0.8mg tablet PO SCH (07:57)
[2017-07-21] MEDS: duloxetine 30mg CAPSULE.DR PO SCH ×2 (07:57→12:50)
[2017-07-21] MEDS: Protein Smoothie (high protein) 240ml (8oz) cup PO SCH ×3 (07:57→17:40)
[2017-07-21] MEDS: multivitamins, therapeutics tablet PO SCH (07:57)
[2017-07-21 18:55] VITALS: BP 123/69
[2017-07-21] MEDS: HYDROcodone/acetaminophen 5mg/325mg tablet PO PRN (19:35)
[2017-07-21] MEDS: mirtazapine 15mg tablet PO SCH (21:06)
[2017-07-21] MEDS: LORazepam 1 MG tablet PO PRN (21:07)
[2017-07-21] MEDS: quetiapine 100mg tablet PO SCH (21:07)
[2017-07-22 07:00] VITALS: BP 111/75
[2017-07-22] MEDS: pantoprazole 40mg Tablet.DR PO SCH (08:12)
[2017-07-22] MEDS: duloxetine 30mg CAPSULE.DR PO SCH ×2 (08:12→12:45)
[2017-07-22] MEDS: folic acid/vitamin B complex w/vitamin C 0.8mg tablet PO SCH (08:12)
[2017-07-22] MEDS: LORazepam 0.5 MG tablet PO SCH (08:12)
[2017-07-22] MEDS: rivaroxaban 15mg tablet PO SCH ×2 (08:13→20:13)
[2017-07-22] MEDS: buPROPion 75mg tablet PO SCH (08:13)
[2017-07-22] MEDS: multivitamins, therapeutics tablet PO SCH (08:13)
[2017-07-22] MEDS: thiamine 100mg tablet PO SCH ×2 (08:13→20:13)
[2017-07-22] MEDS: Protein Smoothie (high protein) 240ml (8oz) cup PO SCH ×3 (08:35→18:00)
[2017-07-22 19:55] VITALS: BP 117/69
[2017-07-22] MEDS: quetiapine 100mg tablet PO SCH (20:13)
[2017-07-22] MEDS: mirtazapine 15mg tablet PO SCH (20:13)
[2017-07-22] MEDS: LORazepam 1 MG tablet PO PRN (20:13)
[2017-07-23 07:00] VITALS: BP 114/79
[2017-07-23] MEDS ORDERED: MULT-1179 PO (07:29)
[2017-07-23] MEDS ORDERED: QUET300T19 PO (07:29)
[2017-07-23] MEDS ORDERED: BUPR75TA12 PO (07:29)
[2017-07-23] MEDS ORDERED: DULO60CA64 PO ×2 (07:29)
[2017-07-23] MEDS ORDERED: RIVA15TA PO (07:29)
[2017-07-23] MEDS ORDERED: PANT40TA4 PO (07:29)
[2017-07-23] MEDS ORDERED: MIRT45TA8 PO (07:29)
[2017-07-23] MEDS: folic acid/vitamin B complex w/vitamin C 0.8mg tablet PO SCH (08:06)
[2017-07-23] MEDS: multivitamins, therapeutics tablet PO SCH (08:06)
[2017-07-23] MEDS: duloxetine 30mg CAPSULE.DR PO SCH ×2 (08:06→12:36)
[2017-07-23] MEDS: pantoprazole 40mg Tablet.DR PO SCH (08:06)
[2017-07-23] MEDS: buPROPion 75mg tablet PO SCH (08:07)
[2017-07-23] MEDS: rivaroxaban 15mg tablet PO SCH (08:07)
[2017-07-23] MEDS: thiamine 100mg tablet PO SCH (08:07)
[2017-07-23] MEDS: Protein Smoothie (high protein) 240ml (8oz) cup PO SCH (08:09)
== END 2017-07-23 12:45 | disposition home or self-care (01) | DRG 885 ==
LOC: ADULT MH 16:45
PROVIDERS: ADMIT Psychiatry & Neurology Psychiatry; ATTEND Psychiatry & Neurology Psychiatry
DX: F33.2 Major depressive disorder, recurrent severe without psychotic features (principal); R45.851 Suicidal ideations; G89.29 Other chronic pain; F10.20 Alcohol dependence, uncomplicated; F12.10 Cannabis abuse, uncomplicated; Z59.0 Homelessness; Z79.01 Long term (current) use of anticoagulants; Z79.899 Other long term (current) drug therapy; Z86.718 Personal history of other venous thrombosis and embolism
CPT/HCPCS: 99285; 99406

== ENCOUNTER 2017-08-11 13:08 | Emergency (ER) | payer MEDICARE, MEDICAID ==
[~2017-08-11] VITALS: Ht 172.7 cm; Wt 83.2 kg
[~2017-08-11 13:08] MED LIST changes: -APIX5TAB3 PO; +BUPR75TA12 PO; +DULO60CA64 PO; +MIRT45TA8 PO; +MULT-1179 PO; -NO HOME MEDS; +PANT40TA4 PO; +QUET300T19 PO; +RIVA15TA PO
[2017-08-11 13:12] VITALS: BP 123/73
[2017-08-11] MEDS ORDERED: CARB15DR91 EACH EAR (14:40)
== END 2017-08-11 15:10 | disposition home or self-care (01) ==
LOC: ER 13:10
DX: H61.23 Impacted cerumen, bilateral (principal); J44.9 Chronic obstructive pulmonary disease, unspecified; Z86.718 Personal history of other venous thrombosis and embolism; Z98.890 Other specified postprocedural states; Z59.0 Homelessness; Z56.0 Unemployment, unspecified; Z79.899 Other long term (current) drug therapy
CPT/HCPCS: 69209; 99282

== ENCOUNTER 2018-05-17 04:55 | Emergency (ER) | payer MEDICARE, MEDICAID ==
[~2018-05-17] VITALS: Ht 172.7 cm; Wt 95.5 kg
[~2018-05-17 04:55] MED LIST changes: +CARB15DR91 EACH EAR
[2018-05-17 05:07] VITALS: BP 131/60
[2018-05-17] MEDS ORDERED: albuterol 2.5 mg/0.5ml nebule NEB ONE (05:15)
[2018-05-17] MEDS ORDERED: dexamethasone 4mg tablet PO ONE (05:15)
[2018-05-17] MEDS ORDERED: albuterol 2.5 MG/3 ML nebule ONE (05:24)
[2018-05-17] MEDS ORDERED: PRED20TA PO (05:48)
[2018-05-17] MEDS ORDERED: ALBU8.5H8 INH (05:51)
[2018-05-20] MEDS ORDERED: DOXY100T2 PO (05:02)
[2018-05-20] MEDS ORDERED: PRED20TA PO (09:32)
== END 2018-05-17 06:04 | disposition home or self-care (01) ==
LOC: ER 04:56
DX: J44.1 Chronic obstructive pulmonary disease with (acute) exacerbation (principal); F17.200 Nicotine dependence, unspecified, uncomplicated; Z59.0 Homelessness; Z56.0 Unemployment, unspecified; Z86.718 Personal history of other venous thrombosis and embolism; Z79.899 Other long term (current) drug therapy; Z79.01 Long term (current) use of anticoagulants
CPT/HCPCS: 71045; 93005; 94640; 94760; 99283; J8540; J7611

== ENCOUNTER → 2018-05-20 | Emergency (ER) | payer MEDICARE, MEDICAID ==
[~2018-05-20] VITALS: Ht 172.7 cm; Wt 95.4 kg
[~2018-05-20] MED LIST changes: +ALBU8.5H8 INH; +CefTRIAXone 2gm/D5W 50ml 50 ML IV ONE; +DOXY100T2 PO; +PRED20TA PO; +albuterol 2.5 MG/3 ML nebule NEB ONE; +albuterol 2.5 MG/3 ML nebule ONE; +albuterol 2.5 mg/0.5ml nebule NEB ONE; +dexamethasone 4mg tablet PO ONE; +magnesium oxide 400mg tablet PO ONE; +normal saline 1000ML IV soln IVB ONE; +predniSONE 20 mg tablet PO ONE
[2018-05-20 08:41] LABS: BASOPHILS % (AUTO) 0 % (0-1); EOSINOPHILS % (AUTO) 0.8 % (0-6); HEMOGLOBIN 13.8 g/dl (14.0-17.9); LYMPHOCYTES # (AUTO) 0.4 X10'3 (1.1-4.8); LYMPHOCYTES % (AUTO) 7.2 % (21-51); MEAN CORPUSCULAR HEMOGLOBIN 31.3 PG (27.0-31.0); MEAN CORPUSCULAR HGB CONC 33.7 % (33.0-36.5); MEAN CORPUSCULAR VOLUME 92.9 FL (78-98); MEAN PLATELET VOLUME 7.3 FL (7.4-10.4); MONOCYTES # (AUTO) 0.3 X10'3 (0-0.9); MONOCYTES % (AUTO) 5.5 % (2-12); NEUTROPHILS # (AUTO) 4.9 X10'3 (1.8-7.7); NEUTROPHILS % (AUTO) 86.5 % (42-75); PLATELET COUNT 185 X10'3 (140-440); RED BLOOD COUNT 4.41 X10'6 (4.70-6.10); RED CELL DISTRIBUTION WIDTH 14.7 % (11.5-14.5); WHITE BLOOD COUNT 5.7 X10'3 (4.5-11.0)
[2018-05-20 09:01] LABS: ALANINE AMINOTRANSFERASE 29 U/L (12-78); ALBUMIN 3.6 G/DL (3.4-5.0); ALBUMIN/GLOBULIN RATIO 0.9 (1.1-1.5); ALKALINE PHOSPHATASE 87 IU/L (46-116); ANION GAP 10 (8-16); ASPARTATE AMINO TRANSFERASE 36 U/L (10-37); BILIRUBIN,TOTAL 0.4 MG/DL (0.1-1.0); BLOOD UREA NITROGEN 21 MG/DL (7-18); BUN/CREATININE RATIO 19.4 (5.4-32.0); CHLORIDE 101 MMOL/L (99-107); CREATININE 1.08 MG/DL (0.60-1.10); GLUCOSE 164 MG/DL (70-104); POTASSIUM 3.6 MMOL/L (3.5-5.1); SODIUM 137 MMOL/L (135-145); TOTAL CARBON DIOXIDE 25.9 MMOL/L (24-32); TOTAL PROTEIN 7.4 G/DL (6.4-8.2); eGFR 70 ML/MIN
[2018-05-20 09:07] LABS: D-DIMER 0.27 MG/L FEU (0-0.50)
[2018-05-20 09:09] LABS: MAGNESIUM 1.8 MG/DL (1.5-2.4)
[2018-05-20 09:18] LABS: PARTIAL THROMBOPLASTIN TIME 32 SECONDS (22-32); PROTHROMBIN TIME 9.7 SECONDS (9.0-12.0)
[2018-05-20 11:03] VITALS: BP 121/82
== END | disposition home or self-care (01) ==
LOC: ER 04:37
DX: J44.1 Chronic obstructive pulmonary disease with (acute) exacerbation (principal); J18.9 Pneumonia, unspecified organism; F32.9 Major depressive disorder, single episode, unspecified; F17.210 Nicotine dependence, cigarettes, uncomplicated; Z79.899 Other long term (current) drug therapy; Z59.0 Homelessness; Z86.718 Personal history of other venous thrombosis and embolism; Z56.0 Unemployment, unspecified
CPT/HCPCS: 36415; 71045; 80053; 83605; 83735; 83880; 84145; 84484; 85025; 85379; 85610; 85730; 87040; 93005; 94640; 94760; 96365; 99285; J0696; J7030; J7512; J7611

== ENCOUNTER 2019-06-17 11:55 | Emergency (ER) | payer MEDICARE, MEDICAID ==
[~2019-06-17] VITALS: Ht 172.7 cm; Wt 74.0 kg
[~2019-06-17 11:55] MED LIST changes: -CefTRIAXone 2gm/D5W 50ml 50 ML IV ONE; -DULO60CA64 PO; +DULO60CA65 PO; +MIRT45TA79 PO; -MIRT45TA8 PO; -PRED20TA PO; -albuterol 2.5 MG/3 ML nebule NEB ONE; -albuterol 2.5 MG/3 ML nebule ONE; -albuterol 2.5 mg/0.5ml nebule NEB ONE; -dexamethasone 4mg tablet PO ONE; -magnesium oxide 400mg tablet PO ONE; -normal saline 1000ML IV soln IVB ONE; -predniSONE 20 mg tablet PO ONE
[2019-06-17 12:05] VITALS: BP 135/72
--- NOTE | 2019-06-17 12:31 | NUR ---
PT STATES, I NEED TO GO HOME FOR A COUPLE OF HOURS TO CLEAN MY APARTMENT, I WILL BE RIGHT BACK. IF THEY PUT A HOLD ON ME IM GOING TO GET VERY UPSET. INFORMED DR. HAMILTON. DR. HAMILTON AT BEDSIDE.
[2019-06-17] MEDS ORDERED: RIVA15TA PO (12:32)
== END 2019-06-17 13:21 | disposition home or self-care (01) ==
LOC: ER 11:55
DX: Z00.00 Encounter for general adult medical examination without abnormal findings (principal); J44.9 Chronic obstructive pulmonary disease, unspecified; F32.9 Major depressive disorder, single episode, unspecified; F10.99 Alcohol use, unspecified with unspecified alcohol-induced disorder; Z86.718 Personal history of other venous thrombosis and embolism; Z60.2 Problems related to living alone; Z59.0 Homelessness; Z56.0 Unemployment, unspecified; Z79.899 Other long term (current) drug therapy; Y90.9 Presence of alcohol in blood, level not specified
CPT/HCPCS: 99283

== ENCOUNTER 2019-11-02 13:45 | Emergency (ER) | payer MEDICARE, MEDICAID ==
[~2019-11-02] VITALS: Ht 172.7 cm; Wt 90.0 kg
[2019-11-02 14:30] LABS: BASOPHILS % (AUTO) 0.4 % (0-1); EOSINOPHILS % (AUTO) 0.5 % (0-6); HEMATOCRIT 42.4 % (42.0-52.0); HEMOGLOBIN 14.3 g/dl (14.0-17.9); LYMPHOCYTES # (AUTO) 1.2 X10'3 (1.1-4.8); LYMPHOCYTES % (AUTO) 15.5 % (21-51); MEAN CORPUSCULAR HEMOGLOBIN 33.2 PG (27.0-31.0); MEAN CORPUSCULAR HGB CONC 33.8 g/dL (33.0-36.5); MEAN CORPUSCULAR VOLUME 98.3 FL (78-98); MEAN PLATELET VOLUME 7.5 FL (7.4-10.4); MONOCYTES # (AUTO) 0.7 X10'3 (0-0.9); MONOCYTES % (AUTO) 8.4 % (2-12); NEUTROPHILS # (AUTO) 5.8 X10'3 (1.8-7.7); NEUTROPHILS % (AUTO) 75.2 % (42-75); PLATELET COUNT 287 X10'3 (140-440); RED BLOOD COUNT 4.32 X10'6 (4.70-6.10); RED CELL DISTRIBUTION WIDTH 13.7 % (11.5-14.5); WHITE BLOOD COUNT 7.8 X10'3 (4.5-11.0)
[2019-11-02 14:48] LABS: ALANINE AMINOTRANSFERASE 35 U/L (12-78); ALBUMIN 4.8 G/DL (3.4-5.0); ALBUMIN/GLOBULIN RATIO 1.3 (1.1-1.5); ALKALINE PHOSPHATASE 65 IU/L (46-116); AMYLASE 38 U/L (25-115); ANION GAP 12 (8-16); ASPARTATE AMINO TRANSFERASE 37 U/L (10-37); BILIRUBIN,TOTAL 0.8 MG/DL (0.1-1.0); BLOOD UREA NITROGEN 37 MG/DL (7-18); BUN/CREATININE RATIO 30.1 (5.4-32.0); CHLORIDE 103 MMOL/L (99-107); CREATININE 1.23 MG/DL (0.60-1.10); GLUCOSE 93 MG/DL (70-104); LIPASE 134 U/L (73-393); POTASSIUM 4.2 MMOL/L (3.5-5.1); SODIUM 138 MMOL/L (135-145); TOTAL CARBON DIOXIDE 22.7 MMOL/L (24-32); TOTAL PROTEIN 8.4 G/DL (6.4-8.2); eGFR 60 ML/MIN
[2019-11-02] MEDS ORDERED: oxyCODONE IR 5mg (immed. release) tablet PO ONE (15:45)
[2019-11-02] MEDS ORDERED: ondansetron 4mg rapidly disintigrating tab PO ONE (15:45)
[2019-11-02 16:45] LABS: CLARITY,URINE CLEAR (Clear); COLOR,URINE YELLOW (Yellow); GLUCOSE, URINE NEGATIVE (Neg); KETONES,URINE >=80 mg/dl (Neg); LEUKOCYTE ESTERASE ,URINE NEGATIVE (Neg); NITRITES, URINE NEGATIVE (Neg); OCCULT BLOOD,URINE MODERATE (Neg); PH,URINE 5.5 (4.8-8.0); PROTEIN,URINE 30 mg/dl (Neg); UROBILINOGEN,URINE 0.2 E.U/dL (0.2-1.0)
[2019-11-02 16:55] LABS: UA COLLECTION TYPE CLN CATCH MIDSTREAM
[2019-11-02 16:56] LABS: WBC,URINE NONE SEEN /HPF (0-4)
[2019-11-02 16:57] LABS: BACTERIA,URINE NONE SEEN /HPF (Neg); SQUAMOUS EPITHELIAL CELL,UR NONE SEEN /LPF (FEW)
[2019-11-02 18:54] VITALS: BP 119/76
== END 2019-11-02 18:53 | disposition home or self-care (01) ==
LOC: ER 13:46
DX: R10.9 Unspecified abdominal pain (principal); J44.9 Chronic obstructive pulmonary disease, unspecified; F32.9 Major depressive disorder, single episode, unspecified; Z86.718 Personal history of other venous thrombosis and embolism; Z60.2 Problems related to living alone; Z59.0 Homelessness; Z56.0 Unemployment, unspecified; Z79.01 Long term (current) use of anticoagulants; Z79.899 Other long term (current) drug therapy
CPT/HCPCS: 36415; 74176; 80053; 81001; 82150; 83690; 84484; 85025; 99284

== ENCOUNTER 2020-06-03 01:09 | Emergency (ER) | payer BC, MEDICAID ==
[~2020-06-03] VITALS: Ht 172.7 cm; Wt 90.8 kg
[~2020-06-03 01:09] MED LIST changes: -MULT-1179 PO; +MULT-25 PO; -PANT40TA4 PO; +PANT40TA54 PO
[2020-06-03 01:14] VITALS: BP 131/82
[2020-06-03] MEDS ORDERED: oxyCODONE/APAP 5-325mg tablet PO ONE (01:35)
== END 2020-06-03 04:12 | disposition home or self-care (01) ==
LOC: ER 01:10
DX: M79.661 Pain in right lower leg (principal); I82.561 Chronic embolism and thrombosis of right calf muscular vein; I83.93 Asymptomatic varicose veins of bilateral lower extremities; J44.9 Chronic obstructive pulmonary disease, unspecified; F17.210 Nicotine dependence, cigarettes, uncomplicated; Z72.89 Other problems related to lifestyle; Z56.0 Unemployment, unspecified; Z59.0 Homelessness; Z79.2 Long term (current) use of antibiotics; Z79.899 Other long term (current) drug therapy
CPT/HCPCS: 93971; 99284

== ENCOUNTER 2020-09-21 08:04 | Emergency (ER) | payer BC, MEDICAID ==
[~2020-09-21] VITALS: Ht 172.7 cm; Wt 86.4 kg
[2020-09-21 08:16] VITALS: BP 130/89
== END 2020-09-21 09:42 | disposition left against medical advice (07) ==
LOC: ER 08:05
DX: F10.129 Alcohol abuse with intoxication, unspecified (principal); Z53.21 Procedure and treatment not carried out due to patient leaving prior to being seen by health care provider; Y90.9 Presence of alcohol in blood, level not specified

== ENCOUNTER 2020-09-21 16:10 | Emergency (ER) | payer BC, MEDICAID ==
[~2020-09-21] VITALS: Ht 172.7 cm; Wt 80.0 kg
[2020-09-21] MEDS ORDERED: magnesium oxide 400mg tablet PO ONE (16:40)
[2020-09-21] MEDS ORDERED: thiamine 100mg tablet PO ONE (16:40)
[2020-09-21] MEDS ORDERED: normal saline 1000ML IV soln IVB ONE (16:40)
[2020-09-21] MEDS ORDERED: ondansetron/PF 4mg/2ml inj IV ONE (16:40)
[2020-09-21] MEDS ORDERED: phenobarbital inj 260 MG in normal saline 100ml IV soln 100 ML IV ONE (16:40)
[2020-09-21 17:13] LABS: BASOPHILS % (AUTO) 0.3 % (0-1); EOSINOPHILS % (AUTO) 0.2 % (0-6); HEMATOCRIT 48.1 % (42.0-52.0); HEMOGLOBIN 16.5 g/dl (14.0-17.9); LYMPHOCYTES # (AUTO) 1.1 X10'3 (1.1-4.8); LYMPHOCYTES % (AUTO) 13.9 % (21-51); MEAN CORPUSCULAR HEMOGLOBIN 34.3 PG (27.0-31.0); MEAN CORPUSCULAR HGB CONC 34.2 g/dL (33.0-36.5); MEAN CORPUSCULAR VOLUME 100.4 FL (78-98); MEAN PLATELET VOLUME 7.9 FL (7.4-10.4); MONOCYTES # (AUTO) 0.6 X10'3 (0-0.9); MONOCYTES % (AUTO) 6.8 % (2-12); NEUTROPHILS # (AUTO) 6.4 X10'3 (1.8-7.7); NEUTROPHILS % (AUTO) 78.8 % (42-75); PLATELET COUNT 255 X10'3 (140-440); RED BLOOD COUNT 4.79 X10'6 (4.70-6.10); WHITE BLOOD COUNT 8.1 X10'3 (4.5-11.0)
[2020-09-21 17:14] LABS: ALANINE AMINOTRANSFERASE 42 U/L (12-78); ALBUMIN 4.7 G/DL (3.4-5.0); ALBUMIN/GLOBULIN RATIO 1.2 (1.1-1.5); ALKALINE PHOSPHATASE 82 IU/L (46-116); ANION GAP 17 (8-16); ASPARTATE AMINO TRANSFERASE 56 U/L (10-37); BILIRUBIN,TOTAL 0.9 MG/DL (0.1-1.0); BLOOD UREA NITROGEN 32 MG/DL (7-18); BUN/CREATININE RATIO 21.1 (5.4-32.0); CALCIUM 9.4 MG/DL (8.5-10.1); CHLORIDE 102 MMOL/L (99-107); CREATININE 1.52 MG/DL (0.60-1.10); ETHANOL 0.149 GM/DL (0.0-0.010); GLUCOSE 87 MG/DL (70-104); MAGNESIUM 2.2 MG/DL (1.5-2.4); SODIUM 141 MMOL/L (135-145); TOTAL CARBON DIOXIDE 21.7 MMOL/L (24-32); TOTAL PROTEIN 8.5 G/DL (6.4-8.2); eGFR 47 ML/MIN
[2020-09-21] MEDS ORDERED: phenobarbital inj 130 MG in normal saline 100ml IV soln 100 ML IV ONE ×2 (17:50→18:25)
--- NOTE | 2020-09-21 19:12 | NUR ---
pt given 3rd dose of phenobarbitol. Given warm blankets. pt is polite and cooperative 2nd liter ns bolus infused.
[2020-09-21 19:53] VITALS: BP 133/80
== END 2020-09-21 19:54 | disposition home or self-care (01) ==
LOC: ER 16:10
DX: R45.851 Suicidal ideations (principal); F10.129 Alcohol abuse with intoxication, unspecified; J44.9 Chronic obstructive pulmonary disease, unspecified; F32.9 Major depressive disorder, single episode, unspecified; F17.200 Nicotine dependence, unspecified, uncomplicated; Z86.718 Personal history of other venous thrombosis and embolism; Z72.89 Other problems related to lifestyle; Z60.2 Problems related to living alone; Z56.0 Unemployment, unspecified; Z59.0 Homelessness; Z79.2 Long term (current) use of antibiotics; Z79.899 Other long term (current) drug therapy; Y90.0 Blood alcohol level of less than 20 mg/100 ml
CPT/HCPCS: 36415; 80053; 80320; 83735; 85025; 93005; 96365; 96366; 96375; 99285; J2405; J2560; J7030

== ENCOUNTER 2022-10-18 20:28 | Emergency (ER) | payer BC, MEDICAID ==
[~2022-10-18] VITALS: Ht 172.7 cm; Wt 84.1 kg
[~2022-10-18 20:28] MED LIST changes: +ALBU8.5H17 INH; -ALBU8.5H8 INH; +BUPR-297 PO; -BUPR75TA12 PO; -QUET300T19 PO; +QUET300T20 PO
--- NOTE | 2022-10-18 20:31 | NUR ---
[facility] brought pt in from [place] and [place] had been working with him for a few hours to get him housing. Please be advised SS to contact [place] as they stated that they will be continuing to look for him, and if you reach out to them you can collaborate search.
[2022-10-18 21:08] LABS: BASOPHILS % (AUTO) 0.3 % (0-1); EOSINOPHILS % (AUTO) 0.3 % (0-6); HEMATOCRIT 42.7 % (42.0-52.0); HEMOGLOBIN 14.2 g/dl (14.0-17.9); LYMPHOCYTES # (AUTO) 1.2 X10'3 (1.1-4.8); LYMPHOCYTES % (AUTO) 29.1 % (21-51); MEAN CORPUSCULAR HGB CONC 33.4 g/dL (33.0-36.5); MEAN CORPUSCULAR VOLUME 101.8 FL (78-98); MEAN PLATELET VOLUME 7.6 FL (7.4-10.4); MONOCYTES # (AUTO) 0.6 X10'3 (0-0.9); MONOCYTES % (AUTO) 13.3 % (2-12); NEUTROPHILS # (AUTO) 2.4 X10'3 (1.8-7.7); PLATELET COUNT 257 X10'3 (140-440); RED CELL DISTRIBUTION WIDTH 14.7 % (11.5-14.5); WHITE BLOOD COUNT 4.2 X10'3 (4.5-11.0)
[2022-10-18] MEDS ORDERED: haloperidol lactate 5mg/ml inj IM ONE (21:10)
[2022-10-18] MEDS ORDERED: diphenhydrAMINE 50 mg/ml inj IM ONE (21:10)
[2022-10-18] MEDS ORDERED: LORazepam 2 mg/ml vial IM ONE (21:10)
--- NOTE | 2022-10-18 21:10 | NUR ---
Patient agitated and making threats to staff and [employer] officer. Pt states he wants probate paralegal, but is told by [employer] that he is not under arrest. Pt continues to insist that he is here against his will and will "fuck you up if you touch me." Security at the bedside.
[2022-10-18 21:21] LABS: ALANINE AMINOTRANSFERASE 64 U/L (12-78); ALBUMIN/GLOBULIN RATIO 1.2 (1.1-1.5); ALKALINE PHOSPHATASE 96 IU/L (46-116); ANION GAP 10 (8-16); ASPARTATE AMINO TRANSFERASE 32 U/L (10-37); BILIRUBIN,TOTAL 0.3 MG/DL (0.1-1.0); BLOOD UREA NITROGEN 16 MG/DL (7-18); CALCIUM 9.3 MG/DL (8.5-10.1); CHLORIDE 104 MMOL/L (99-107); CREATININE 1.14 MG/DL (0.60-1.10); ETHANOL 0.198 GM/DL (0.0-0.010); GLUCOSE 103 MG/DL (70-104); POTASSIUM 4.2 MMOL/L (3.5-5.1); SODIUM 141 MMOL/L (135-145); TOTAL CARBON DIOXIDE 26.6 MMOL/L (24-32); TOTAL PROTEIN 7.4 G/DL (6.4-8.2); eGFR 65 ML/MIN
--- NOTE | 2022-10-18 21:42 | NUR ---
he is laying down, lights off and door closed.
[2022-10-18 22:18] LABS: CLARITY,URINE CLEAR (Clear); COLOR,URINE YELLOW (Yellow); GLUCOSE, URINE NEGATIVE (Neg); KETONES,URINE NEGATIVE (Neg); LEUKOCYTE ESTERASE ,URINE NEGATIVE (Neg); NITRITES, URINE NEGATIVE (Neg); OCCULT BLOOD,URINE TRACE-INTACT (Neg); PROTEIN,URINE NEGATIVE (Neg); UROBILINOGEN,URINE 0.2 E.U/dL (0.2-1.0)
[2022-10-18 22:24] LABS: UA COLLECTION TYPE VOIDED
[2022-10-18 22:25] LABS: BACTERIA,URINE NONE SEEN /HPF (Neg); RBC,URINE 0-2 /HPF (0-2); SQUAMOUS EPITHELIAL CELL,UR FEW /LPF (FEW); WBC,URINE 0-4 /HPF (0-4)
[2022-10-18 22:43] LABS: URINE AMPHETAMINE SCREEN NEGATIVE (Neg); URINE BARBITUATE SCREEN POSITIVE (Neg); URINE BENZODIAZEPINES SCREEN NEGATIVE (Neg); URINE CANNABINOID SCREEN NEGATIVE (Neg); URINE COCAINE SCREEN NEGATIVE (Neg); URINE METHADONE SCREEN NEGATIVE (Neg); URINE OPIATE SCREEN NEGATIVE (Neg); URINE PHENCYCLIDINE SCREEN NEGATIVE (Neg)
--- NOTE | 2022-10-19 00:33 | NUR ---
Pt uncooperative with assessments. Pt refuses to answer or threatens staff.
[2022-10-19] MEDS ORDERED: ziprasidone IM 20mg inj **IM only IM ONE (00:45)
--- NOTE | 2022-10-19 00:49 | NUR ---
Security summoned to bedside. The patient got very lippy with AARON Martin and when he was confronted by security he was lippy with them. Then he wants to get mouthy and say that we brought him here and that we are holding him against his will, that "I want my family law attorney" and "I'm going [place]" refuses to follow directions, name calling. Refuses to change out into scrubs. Patient advised his actions brought him here from [facility], nothing that we or the police did. That it is HIS actions, such as suicidal ideation brought him here, nothing we did. He did change into scrubs, his room is emptied and he did take his injection of geodon. He is sitting on the EOB starring at me right now with the lights off and the door closed. Pt was informed that I am tired of his attitude since he has gotten here and that how he has talked to the staff all night is unacceptable and will not be tolerated no more.
--- NOTE | 2022-10-19 07:00 | NUR ---
PT WALKING IN ROOM ,NO DISTRESS NOTED ,WILL CONT TO MONITOR.
--- NOTE | 2022-10-19 08:15 | NUR ---
pt sleeping at this time ,didn't disturb at this time for breakfast.
--- NOTE | 2022-10-19 09:01 | NUR ---
pt is sleeping in rgt lateral position ,RR wnl will cont to monitor.
--- NOTE | 2022-10-19 09:19 | NUR ---
pt sleeping in rgt lateral position ,no distress noted.RR WNL.
--- NOTE | 2022-10-19 09:42 | NUR ---
PT UP IN BED EATING HIS BREAKAST ,NO DISTRESS NOTED WILL CONT TO MONITOR.
--- NOTE | 2022-10-19 11:53 | NUR ---
Pt resting in bed quietly ,No distress noted .Will cont to monitor.
--- NOTE | 2022-10-19 13:15 | NUR ---
pt up in bed at this time ,peaking through the glass door ,no distress noted ,will cont to monitor.
--- NOTE | 2022-10-19 15:32 | NUR ---
PT AMBULATED TO BR VOIDED X1 CLEAR YELLOW, NO BM. TOLERATED WELL.
--- NOTE | 2022-10-19 17:03 | NUR ---
PT UP TO USE THE RESTROOM.
--- NOTE | 2022-10-19 19:08 | NUR ---
STANDING AT THE DOOR ASKING IF THE DOOR CAN BE KEPT OPEN, INFORMED HIM NO HE IS +COVID AND HE IS ARGUMENTATIVE THAT "NO I DON'T"
[2022-10-19 19:25] VITALS: BP 108/59
[2022-10-19] MEDS ORDERED: LORazepam 1 MG tablet PO STA (21:48)
--- NOTE | 2022-10-19 21:50 | NUR ---
Pt came to his door and asked for a medication to help him with his anxiety. MD made aware and order received.
--- NOTE | 2022-10-20 06:23 | NUR ---
Assumed care from [facility] nurse. Pt in stable condition. Pt laying on gurney HOB elevated. Pt is calm and cooperative. Educated Pt to POC. Pt in agreement.
--- NOTE | 2022-10-20 07:20 | NUR ---
Pt laying in bed resting. Pt is calm and cooperative.
--- NOTE | 2022-10-20 08:17 | NUR ---
Pt ate all cof his breakfast. Pt sitting on edge of bed.
--- NOTE | 2022-10-20 09:24 | NUR ---
Pt laying down resting. No c/o pain.
--- NOTE | 2022-10-20 10:27 | NUR ---
Pt got up and used the RR. Pt voiding w/o difficulty. Pt remains calm. Pt sitting on the side of the gurney.
--- NOTE | 2022-10-20 11:34 | NUR ---
Pt on gurney resting. Eyes closed.
--- NOTE | 2022-10-20 12:42 | NUR ---
Pt conts to ask about when he will be d/c. Spoke to [facility], they not eval the patient at this time.
== END 2022-10-20 15:30 ==
LOC: ER 20:28
DX: U07.1 COVID-19 (principal); R45.851 Suicidal ideations; F10.129 Alcohol abuse with intoxication, unspecified; J44.9 Chronic obstructive pulmonary disease, unspecified; Z56.0 Unemployment, unspecified; Z59.00 Homelessness unspecified; Y90.9 Presence of alcohol in blood, level not specified
CPT/HCPCS: 36415; 80053; 80305; 80320; 81001; 85025; 87811; 96372; 99285; J2060; J3486